=== PATIENT | female | born 1965 | race Caucasian/White ===

== ENCOUNTER → 2016-02-21 | Outpatient (CLI) | payer BC ==
--- NOTE | 2016-02-22 14:12 | PE ---
EXAMINATION TYPE: PET CT fusion skull to thigh DATE OF EXAM: 02/21/2016 1:59 PM CLINICAL HISTORY: 50-year-old female history of left breast cancer, restaging. Treated with lumpectom y in February 2015 and radiation therapy completed in June 2015. TECHNIQUE: Following the intravenous administration of 14.1 mCi of F-18 FDG, whole body images are performed from the skull base to the midthigh. Images are reviewed on the computer in the coronal, a xial, and sagittal planes. Reconstructed rotating images are created on independent workstation and reviewed on the computer. A localization and attenuation correction CT is performed in conjunction with the PET scan. Glucose level: 110 mg/dL COMPARISON: Mammogram 08/06/2015 FINDINGS: PET: So variable mild to moderate FDG uptake involving the floor of the mouth musculature. Patient's medial left breast lumpectomy scar shows mild postoperative FDG uptake, maximal SUV 1.4. Th ere are some surgical clips in this region. Scattered mild bowel activity and some moderate uptake in the region of the cecum likely physiologic muscular uptake. Otherwise, there is normal FDG activity throughout the neck, chest, abdomen, and pelvis. ATTENUATION CORRECTION CT: Visualized paranasal sinuses and mastoid air cells appear clear. No cervical lymphadenopathy seen. Heart is borderline enlarged without pericardial effusion. Bovine configuration to the aortic arch. N o thoracic lymphadenopathy seen. There is no consolidation or pleural effusion. 2.5 cm gallstone within a nondistended gallbladder. Small inferior hilar splenule. No dilated small bowel, free fluid, or free air. No mesenteric or retroperitoneal lymphadenopathy. Tiny fatty umbilica l hernia. Some surgical material in the right lower quadrant from prior appendectomy. Mild diverticul osis along the descending colon. There is a 4.1 cm cystic lesion within the left adnexa. Right ovary appears normal. Uterus is visuali zed. No abnormal fluid collection in the pelvis or pelvic lymphadenopathy. Bones: No osseous destructive process. Degenerative changes in the cervical spine. IMPRESSION: 1. Some mild postoperative FDG uptake at the patient's medial left breast lumpectomy site. 2. No metabolic or CT evidence for metastatic disease 3. A 4.1 cm cystic lesion within the left adnexa. This is abnormal in a postmenopausal female. Recomm end pelvic ultrasound to further characterize and determine subsequent follow-up. 4. Cholelithiasis and a few diverticula in the descending colon.
== END | disposition home or self-care (01) ==
LOC: RADPETMAIN 11:52
PROVIDERS: ATTEND Family Medicine
DX: C50.919 Malignant neoplasm of unspecified site of unspecified female breast (principal); L98.8 Other specified disorders of the skin and subcutaneous tissue; K80.20 Calculus of gallbladder without cholecystitis without obstruction; K57.30 Diverticulosis of large intestine without perforation or abscess without bleeding
CPT/HCPCS: 78815; A9552

== ENCOUNTER → 2016-03-01 | Outpatient (CLI) | payer BC ==
--- NOTE | 2016-03-01 07:59 | US ---
EXAMINATION TYPE: US transvaginal DATE OF EXAM: 03/01/2016 7:35 AM COMPARISON: PET 02/22/16 CLINICAL HISTORY: N85.8 Complex Cyst of Uterine. LLQ pain, h/o 2 c-sections, tubal ligation, ablatio n, past IUD, on Tamoxifen TECHNIQUE: TV and limited TA Date of LMP: 3-4 months ago EXAM MEASUREMENTS: Uterus: 10.2 x 4.8 x 7.2cm Endometrial Stripe: 0.7cm Right Ovary: not seen Left Ovary: 6.9 x 5.9 x 4.4cm TECHNOLOGIST IMPRESSION: wnl 1. Uterus: very heterogeneous and difficult to penetrate, due to left ovary pathology and enlargemen t it is displacing uterus 2. Endometrium: wnl 3. Right Ovary: not seen due to bowel gas, attempted transabdominal to visualize but was not seen 4. Left Ovary: multiple cystic structures seen, largest appears hemorrhagic = 4.3cm, second = 2.2cm mostly anechoic cyst seen and then a third = 2.5cm debris filled structure noted 5. Bilateral Adnexa: mild free fluid seen within right and left adnexa 6. Posterior cul-de-sac: mild free fluid IMPRESSION: 1. Large complex cyst left ovary. Follow-up is recommended. 2. Additional smaller more cystlike areas are within the left adnexal region as well. 3. Small amount of free fluid present.
--- NOTE | 2016-03-01 08:03 | US ---
EXAMINATION TYPE: US abdomen limited DATE OF EXAM: 03/01/2016 7:17 AM COMPARISON: PET 02/22/16 CLINICAL HISTORY: D73.9 Spleen Disease. EXAM MEASUREMENTS: Spleen: 11.3cm Left Kidney: 12.5 x 4.0 x 5.0cm TECHNOLOGIST IMPRESSION: 0.9cm probable cystic structure seen within lateral spleen, 2 cystic structu res seen within left kidney, largest = 3.2cm mid pole with septations, smaller = 1.9cm inferior pole cyst There is a hypoechoic area within the spleen measuring 0.9 x 0.7 x 0.9 cm. Posterior wall enhancement and good through transmission may be present. A cyst is most likely within the differential. Peripel julien cysts are suspected on the left kidney. Inferior pole left renal cyst measuring 1.9 x 1.8 x 1.9 c m is present. IMPRESSION: 1. Peripelvic and cortical renal cysts. 2. Probable cyst within the spleen. This is not identified on the CT examination and follow-up with u ltrasound can be performed in 3 months. The splenule identified on the PET/CT is not identified on e ultrasound.
== END | disposition home or self-care (01) ==
LOC: RADUSWWP 06:56
PROVIDERS: ATTEND Family Medicine
DX: N28.1 Cyst of kidney, acquired (principal); N83.202 Unspecified ovarian cyst, left side
CPT/HCPCS: 76705; 76830; 76857

== ENCOUNTER → 2016-08-06 | Outpatient (CLI) | payer BC ==
--- NOTE | 2016-08-06 13:41 | MM ---
Reason for exam: additional evaluation requested from prior study. Last mammogram was performed 1 year ago. History: Patient is postmenopausal and has history of breast cancer at age 49. Malignant US breast localization LT, February 18, 2015. Lumpectomy of the left breast, February 2015. Radiation therapy, 2016. Malignant US biopsy breast VAD LT of the left breast, January 09, 2015. Taking antineoplastic for 1 year beginning at age 49. Physical Findings: Nurse did not find any significant physical abnormalities on exam. MG 3D Diag Mammo W/Cad ALPA Bilateral CC and MLO view(s) were taken. Prior study comparison: August 06, 2015, bilateral MG 3d diag mammo w/cad ALPA. February 18, 2015, left breast MG diagnostic mammo LT wo CAD. The breast tissue is heterogeneously dense. This may lower the sensitivity of mammography. No suspicious calcifications are seen. Post lumpectomy changes in the left breast. No significant new findings when compared with previous films. These results were verbally communicated with the patient and result sheet given to the patient on 08/06/16. ASSESSMENT: Benign, BI-RAD 2 RECOMMENDATION: Follow-up diagnostic mammogram of both breasts in 1 year.
== END | disposition home or self-care (01) ==
LOC: RADMAMWWP 12:27
PROVIDERS: ATTEND Internal Medicine Hematology & Oncology
DX: Z08 Encounter for follow-up examination after completed treatment for malignant neoplasm (principal); Z85.3 Personal history of malignant neoplasm of breast
CPT/HCPCS: G0204; G0279

== ENCOUNTER → 2017-08-11 | Outpatient (CLI) | payer BC ==
--- NOTE | 2017-08-15 07:54 | MM ---
Reason for exam: additional evaluation requested from prior study. Last mammogram was performed 1 year ago. History: Patient is postmenopausal and has history of breast cancer at age 49. Malignant US breast localization LT, February 18, 2015. Lumpectomy of the left breast, February 2015. Radiation therapy, 2016. Malignant US biopsy breast VAD LT of the left breast, January 09, 2015. Taking antineoplastic for 1 year beginning at age 49. Physical Findings: Nurse did not find any significant physical abnormalities on exam. MG 3D Diag Mammo W/Cad ALPA Bilateral CC and MLO view(s) were taken. Technologist: Jennifer Ruiz, RT (R)(M) Prior study comparison: August 06, 2016, bilateral MG 3d diag mammo w/cad ALPA. August 06, 2015, bilateral MG 3d diag mammo w/cad ALPA. There are scattered fibroglandular densities. There is chronic nodularity in the right breast. Post surgical and post therapy changes in the left breast. Multiple surgical clips. No significant new findings when compared with previous films. These results were verbally communicated with the patient and result sheet given to the patient on 08/11/17. ASSESSMENT: Benign, BI-RAD 2 RECOMMENDATION: Follow-up diagnostic mammogram of both breasts in 1 year.
== END | disposition home or self-care (01) ==
LOC: RADMAMWWP 14:45
PROVIDERS: ATTEND Internal Medicine Hematology & Oncology
DX: Z08 Encounter for follow-up examination after completed treatment for malignant neoplasm (principal); Z85.3 Personal history of malignant neoplasm of breast
CPT/HCPCS: 77062; 77066

== ENCOUNTER → 2018-03-22 | Outpatient (CLI) | payer BC ==
--- NOTE | 2018-03-23 16:31 | BD ---
EXAMINATION TYPE: Axial Bone Density DATE OF EXAM: 03/22/2018 COMPARISON: NONE CLINICAL HISTORY: Height: 62 IN Weight: 206 LBS RISK FACTORS HISTORY OF: Active: YES Postmenopausal woman: TOTAL HYST AGE 51 If Premenopausal, do you have irregular periods: MEDICATIONS: Additional Medications: VIT D, LETROZOLE ( ESTROGEN INHIBITOR), LISINOPRIL, Additional History: BREAST CANCER WITH RADIATION EXAM MEASUREMENTS: Bone mineral densitometry was performed using the [employer]. Bone mineral density as measured about the Lumbar spine is: ----- L1-L4(G/cm2): 1.219 T Score Values are as follows: ----- L2: 0.4 ----- L3: 0.1 ----- L4: 0.0 ----- L1-L4: 0.3 Bone mineral density BASELINE Bone mineral density about the R hip (g/cm2): 1.053 Bone mineral density about the L hip (g/cm2): 1.013 T Score values are as follows: -----R Neck: 0.1 -----L Neck: -0.2 -----R Total: 0.8 -----L Total: 1.0 Bone mineral density BASELINE IMPRESSION: Normal (Values between +1 and -1 indicate normal bone mass). Consider repeating this study in 5 year s or sooner if there is some new clinical indication. NOTE: T-SCORE=SD OF THE YOUNG ADULT MEAN.
== END ==
LOC: RADBDWWP 16:06
PROVIDERS: ATTEND Internal Medicine Hematology & Oncology
DX: C50.312 Malignant neoplasm of lower-inner quadrant of left female breast (principal); Z79.811 Long term (current) use of aromatase inhibitors; Z79.890 Hormone replacement therapy
CPT/HCPCS: 77080

== ENCOUNTER → 2018-09-14 | Outpatient (CLI) | payer BC ==
--- NOTE | 2018-09-14 14:28 | MM ---
Reason for exam: additional evaluation requested from prior study. Last mammogram was performed 1 year and 1 month ago. History: Patient is postmenopausal and has history of breast cancer at age 49. Malignant US breast localization LT, February 18, 2015. Lumpectomy of the left breast, February 2015. Radiation therapy, 2016. Malignant US biopsy breast VAD LT of the left breast, January 09, 2015. Taking estrogen. Taking antineoplastic for 1 year beginning at age 49. Physical Findings: Nurse did not find any significant physical abnormalities on exam. MG 3D Diag Mammo W/Cad ALPA Bilateral CC and MLO view(s) were taken. Spot compression CC, spot compression MLO, and ML view(s) were taken of the right breast. XCCM and LM view(s) were taken of the left breast. Prior study comparison: August 11, 2017, bilateral MG 3d diag mammo w/cad ALPA. August 06, 2016, bilateral MG 3d diag mammo w/cad ALPA. There are scattered fibroglandular densities. Finding #1: Architectural distortion in the posterior position of the left breast consistent with known lumpectomy changes. Finding #2: There are typically benign vascular, round calcifications in both breasts. There is a chronic nodularity in the right breast. Post surgical change on left. These results were verbally communicated with the patient and result sheet given to the patient on 09/14/18. ASSESSMENT: Benign, BI-RAD 2 RECOMMENDATION: Follow-up diagnostic mammogram of both breasts in 1 year.
== END ==
LOC: RADMAMWWP 12:53
PROVIDERS: ATTEND Internal Medicine Hematology & Oncology
DX: Z08 Encounter for follow-up examination after completed treatment for malignant neoplasm (principal)
CPT/HCPCS: 77062; 77066